=== PATIENT | female | born 1990 | race Caucasian/White ===

== ENCOUNTER 2021-12-21 08:00 | Outpatient (CLI) | payer MEDICAID | END 2021-12-21 23:59 | disposition home or self-care (01) | LOC: LAB.N 08:00 | PROVIDERS: ATTEND Family Medicine | DX: N39.0 Urinary tract infection, site not specified (principal) | CPT/HCPCS: 87086; 87181 ==

== ENCOUNTER 2023-01-24 09:00 | Outpatient (CLI) | payer MEDICAID | END 2023-01-24 09:15 | disposition home or self-care (01) | LOC: LAB.N 09:00 | PROVIDERS: ATTEND Family Medicine | DX: J02.9 Acute pharyngitis, unspecified (principal) | CPT/HCPCS: 87070; 87430 ==